=== PATIENT | female | born 1990 | race Two or more races ===

== ENCOUNTER 2020-08-24 13:39 | Outpatient (CLI) | payer OTHER | END 2020-08-24 13:54 | disposition home or self-care (01) | LOC: SONOGRAMA 13:39 | PROVIDERS: ATTEND Surgery | DX: D24.1 Benign neoplasm of right breast (principal); N60.11 Diffuse cystic mastopathy of right breast; N60.12 Diffuse cystic mastopathy of left breast; N64.59 Other signs and symptoms in breast ==